=== PATIENT | female | born 1995 | race Hispanic/Latino ===

== ENCOUNTER 2018-09-10 14:52 | Emergency (ER) | payer OTHER ==
[~2018-09-10] VITALS: Ht 160 cm; Wt 100.6 kg
[2018-09-10] MEDS ORDERED: ACETAMINOPHEN 325 MG TAB PO ONE (16:30)
--- NOTE | 2018-09-10 17:33 | REP ---
Clinical: Irregular menstrual cycles . Technique: Transabdominal pelvic ultrasound followed by transvaginal examination for better evaluation of the endometrium and adnexa with color Doppler evaluation of the ovaries. Findings: Bladder is unremarkable and measures 6.5 x 3.6 x 3.2 cm . Normal anteverted uterus measures 7.6 x 3.0 x 4.4 cm . The endometrial complex measures 4.9 mm thickness. No discrete uterine or endometrial abnormalities are appreciated. Incidental Nabothian cysts noted. Right ovary is normal in appearance and vascularity without torsion. Right ovary measures 3.3 x 1.7 x 2.8 cm ; R I = 0.73 . Left ovary measures 6.3 x 4.3 x 5.3 cm with 5.7 cm dermoid containing fat and here/soft tissue components. No free fluid. . Impression: 1. Normal uterus and right ovary. 2. Left ovary/adnexa with 5.7 cm dermoid cyst/teratoma. Electronically Signed by Max Burnham MD 09/10/2018 05:24 P
[2018-09-10 18:07] VITALS: BP 122/76
== END 2018-09-10 18:07 | disposition home or self-care (01) ==
LOC: M ED 14:52
DX: N91.2 Amenorrhea, unspecified (principal); D27.9 Benign neoplasm of unspecified ovary

== ENCOUNTER 2019-06-02 05:51 | Day surgery (SDC) | payer OTHER ==
[~2019-06-02] VITALS: Ht 160 cm; Wt 93.6 kg
[~2019-06-02 05:51] MED LIST: birth control PO
[2019-06-02] MEDS ORDERED: LR 1,000 ML IV ONE (06:00)
[2019-06-02 06:38] LABS: HEMATOCRIT 40.7 % (36.0-47.0); HEMOGLOBIN 12.8 g/dl (12.0-15.5); MEAN CORPUSCULAR HEMOGLOBIN 26.1 pg (27.0-33.0); MEAN CORPUSCULAR HGB CONC 31.4 g/dl (32.0-36.5); MEAN CORPUSCULAR VOLUME 83.1 fl (80.0-96.0); PLATELET COUNT, AUTOMATED 342 10^3/uL (150-450); WHITE BLOOD COUNT 13.1 10^3/uL (4.0-10.0)
[2019-06-02] MEDS ORDERED: BUPIVACAINE HCL 0.5% 30 ML VIAL As Ordered ONE (06:57)
[2019-06-02] MEDS ORDERED: fentaNYL 100 MCG/2 ML INJECTION (J3010) As Ordered ONE (07:10)
[2019-06-02] MEDS ORDERED: SUGAMMADEX SODIUM 500 MG/5 ML VIAL (BRIDION) As Ordered ONE (07:10)
[2019-06-02] MEDS ORDERED: ACETAMINOPHEN 1000MG 100ML IV BTL (OFIRMEV) (J0131 PER 10MG) As Ordered ONE (07:10)
[2019-06-02] MEDS ORDERED: dexameTHASONE 4 MG/ML 1ML VIAL (J1100) As Ordered ONE (07:10)
[2019-06-02] MEDS ORDERED: ROCURONIUM BROMIDE 50 MG/5 ML VIAL As Ordered ONE (07:10)
[2019-06-02] MEDS ORDERED: ONDANSETRON 4MG/2ML VIAL (J2405) As Ordered ONE (07:10)
[2019-06-02] MEDS ORDERED: PROPOFOL 200 MG/20 ML VIAL As Ordered ONE (07:10)
[2019-06-02] MEDS ORDERED: LIDOCAINE 2% INJ 100 MG/5 ML SDV (FOR ANES.) As Ordered ONE (07:10)
[2019-06-02] MEDS ORDERED: KETOROLAC 60 MG/2 ML VIAL (J1885) As Ordered ONE (07:10)
[2019-06-02] MEDS ORDERED: MIDAZOLAM INJ 2 MG/2 ML VIAL (J2250) As Ordered ONE (07:11)
[2019-06-02 07:14] LABS: HCG, SERUM QUALITATIVE NEGATIVE (NEGATIVE)
[2019-06-02] MEDS ORDERED: GLYCOPYRROLATE INJ 0.2 MG/ML 2 ML VIAL As Ordered ONE (09:13)
[2019-06-02] MEDS ORDERED: NEOSTIGMINE 10 MG/10 ML VIAL (J2710) As Ordered ONE (09:13)
[2019-06-02] MEDS ORDERED: fentaNYL 100 MCG/2 ML INJECTION (J3010) IV PRN (09:45)
[2019-06-02] MEDS ORDERED: METOCLOPRAMIDE INJ 10MG/2ML VIAL (J2765) IV PRN (09:45)
[2019-06-02] MEDS ORDERED: oxyCODONE 5MG TAB PO PRN (09:45)
[2019-06-02] MEDS ORDERED: LR 1,000 ML IV SCH (09:45)
[2019-06-02] MEDS ORDERED: ONDANSETRON 4MG/2ML VIAL (J2405) IV PRN (09:45)
[2019-06-02] MEDS ORDERED: MEPERIDINE INJ 25 MG/ML VIAL (J2175) IV PRN (09:45)
[2019-06-02 11:52] VITALS: BP 120/69
[2019-06-02] MEDS ORDERED: PERCOCET 5MG/325MG TAB PO PRN (12:00)
[2019-06-02] MEDS ORDERED: KETOROLAC 30 MG/ML VIAL (J1885) IV PRN (15:00)
--- NOTE | 2019-06-06 11:00 | RO ---
DATE OF PROCEDURE: 06/02/2019 PREOPERATIVE DIAGNOSIS: Left ovarian mature teratoma or dermoid cyst. POSTOPERATIVE DIAGNOSIS: Left ovarian mature teratoma or dermoid cyst. PROCEDURE: Laparoscopic ovarian cystectomy. SURGEON: Isaiah Flynn DO MONOMER PURIFICATION OPERATOR: Sawyer Eddy DO ANESTHESIA: General. FLUIDS: 1100 mL of Lactated Ringer's. URINE OUTPUT: 200 mL via Pacheco catheter. ESTIMATED BLOOD LOSS: 5 mL. COMPLICATIONS: None. ANTIBIOTICS: None indicated. OPERATIVE FINDINGS: Normal uterus, right ovary and right fallopian tube. Normal left fallopian tube. Large, approximately 6 cm, dermoid cyst seen on the left ovary, otherwise normal pelvis. DETAILED PROCEDURE DESCRIPTION: The risks, benefits, indications and alternatives of the procedure were reviewed with the patient and informed consent was obtained. The patient was taken to the operating room where general anesthesia was obtained without difficulty. The patient was then placed in the lithotomy position using gel padded Luther stirrups. The patient was then prepped and draped in the usual sterile fashion. A surgical time out was then performed and the patient's identity and planned procedure were verified with the operative team. A Pacheco catheter was placed first. A sterile speculum was then inserted into the vagina and the cervix was visualized. An acorn uterine manipulator was then placed into the uterus as a means to manipulate the uterus. The sterile speculum was then removed. Gloves were then exchanged and attention was then turned to the patient's abdomen where a 5 mm skin incision was then made in the inferior aspect of the umbilicus. A 5 mm trocar and sleeve were then carefully introduced into the peritoneal cavity under direct visualization at a 90 degree angle while tenting up the abdominal wall. Intraperitoneal placement was confirmed under direct visualization and entry pressure was noted to be less than 5 mmHg. A pneumoperitoneum was then obtained with several liters of CO2 gas. Upon entering the peritoneal cavity, structures immediately below the incision were inspected and found to be free of injury. At this time, two additional trocars were inserted into the abdomen to include a 5 mm port in the right lower quadrant and an 11 mm port in the left lower quadrant. These ports were placed under direct visualization after skin incisions were made with a scalpel. A survey of the patient's abdomen and pelvis was notable for a large, approximately 6 cm, dermoid cyst on the left ovary. The fallopian tubes bilaterally were normal in appearance. The right ovary was normal in appearance. The uterus was normal in appearance. Using monopolar Endo Arvin the left ovarian cyst was dissected away from the ovarian stroma. Rupture of the cyst occurred during dissection and fatty liquid and tissue was observed coming from the cyst. The left ovarian cyst was then removed from the ovary via careful dissection with laparoscopic instruments. The entire cyst wall and content was then removed from the ovary through meticulous dissection. An Endo Catch bag was then introduced into the abdomen and the ovarian cyst wall and content including fat and hair tissue was then placed into the Endo Catch bag and removed from the abdomen. Examination of the pelvis revealed excellent hemostasis at the left ovary operative site. After removal of the cyst, the ovary appeared normal. The pelvis was then copiously irrigated with approximately 2 liters of fluid to remove all cyst wall content from the abdomen. After copious irrigation, inspection revealed no further cyst wall content in the pelvis. Inspection of the left ovary again revealed hemostasis at the ovarian stroma and no bleeding whatsoever. After irrigation, the abdomen was again inspected and everything was hemostatic. The left lower quadrant port was then removed under direct visualization. A Arnoldo-Haylie device was then used to close the fascial layer of the left lower quadrant port using #0 Vicryl suture. The gas was then turned off and all CO2 was removed from the patient's abdomen. The remaining ports were then removed under direct visualization. There was no bleeding seen from the trocar sites. The patient was given three manual breaths to assist with desufflation of the abdomen. The skin incisions were then closed with #4-0 Vicryl suture in a subcuticular fashion and then covered with DERMABOND. The uterine manipulator was then removed and excellent hemostasis was noted at the cervix. The patient's Pacheco catheter was then removed. All instruments were then confirmed to have been removed from the patient's vagina. At the completion of the case, the sponge, instrument and needle counts were correct times two. The patient tolerated the procedure well and was taken to the postanesthesia care unit (PACU) in stable condition. CALDERON
== END 2019-06-02 11:53 | disposition home or self-care (01) ==
LOC: M SDC 05:51
PROVIDERS: ATTEND Obstetrics & Gynecology
DX: D39.12 Neoplasm of uncertain behavior of left ovary (principal); Z79.3 Long term (current) use of hormonal contraceptives
CPT/HCPCS: 36415; 58662; 84703; 85027; 86850; 86900; 86901; 88305; J0131; J1100; J1885; J2250; J2405; J2710; J2765; J3010

== ENCOUNTER 2020-10-30 16:30 | Emergency (ER) | payer OTHER ==
[~2020-10-30] VITALS: Ht 157.5 cm; Wt 97.8 kg
[2020-10-30] MEDS ORDERED: NS 1,000 ML IV ONE (17:15)
--- NOTE | 2020-10-30 17:57 | REP ---
INDICATION: pelvic cramping: ?14 weeks . COMPARISON: None. TECHNIQUE: Transabdominal obstetric sonography. FINDINGS: Scanning through the gravid uterus demonstrates a single living intrauterine gestation in a transverse lie. The placenta is anterior grade 0 without evidence of previa. No abruption seen. Amniotic fluid is subjectively normal. heart rate is recorded at 156 beats per minute. Closed cervical length is 3.0 cm measured transabdominally. Biometry chart: BPD 2.9 cm, 15 weeks 2 days Abdominal circumference 8.6 cm, 15 weeks 0 days Humeral length 1.7 cm, 15 weeks 0 days Head circumference 10.7 cm, 15 weeks 1 day Femur length 1.7 cm, 15 weeks 0 days IMPRESSION: Viable single intrauterine gestation at 15 weeks 1 days by today's composite sonographic criteria. KRISTEL by today's sonography April 22, 2021. No complication identified. <Electronically signed by Mau Mallory > 10/30/20 [id number]
[2020-10-30 19:45] VITALS: BP 135/81
[2020-10-30] MEDS ORDERED: CEPH500C PO (19:51)
== END 2020-10-30 20:02 | disposition home or self-care (01) ==
LOC: M ED 16:30
DX: O99.891 Other specified diseases and conditions complicating pregnancy (principal); R10.2 Pelvic and perineal pain; Z3A.15 15 weeks gestation of pregnancy; Z87.42 Personal history of other diseases of the female genital tract; Z98.890 Other specified postprocedural states

== ENCOUNTER → 2021-01-09 | Outpatient (CLI) | payer OTHER ==
[~2021-01-09] VITALS: Ht 157.5 cm; Wt 105.6 kg
[~2021-01-09] MED LIST changes: +CEPH500C PO
--- NOTE | 2021-01-09 17:23 | IPNPDOC ---
Subjective Date Seen The patient was seen on 01/09/21. Subjective Chief Complaint/HPI 25yo at 25w0d with KRISTEL 10 Nov presents to triage with dizziness. States she feels like she 'overdid it' at work today. 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 States that she feels a little lightheaded/dizzy when standing and symptoms resolve with rest. She also states she did not eat today. In additions, she reports an episode of light pink spotting when wiping while in the bathroom. She is otherwise without complaint. Denies ctx, LOF, bright red bleeding or discharge. +GFM. General: Reports: Fatigue, Normal Appetite; Denies: Chills, Night Sweats, Malaise Constitutional: Reports: Other (dizziness); Denies: Chills, Fever, Night Sweats Eyes: Denies: Pain, Vision change Pulmonary: Denies: Dyspnea, Cough Cardiovascular: Denies: Chest Pain, Palpitations, Orthopnea, Paroxysmal Noc. Dyspnea, Lt Headedness Neurological: Denies: Weakness, Numbness, Change in speech, Confusion Psych: Reports: Mood Normal; Denies: Depression, Memory Issues Objective Physical Examination General Exam: Positive: Alert, No Acute Distress Chest Exam: Positive: Normal air movement Heart Exam: Positive: Rate Normal Female Exam: Positive: Nl Ext Genitalia, Normal Cervical Exam (visually closed. No blood or discharge on exam); Negative: Lesions, Discharge, Odor, Tenderness Psych Exam: Positive: Mental status NL, Mood NL, Oriented x 3 Other physical findings Cat 1 FHT. No contractions on tocometer Assessment /Plan Assessment 25yo at 25w0d with dizziness. Symptoms much improved since arrival. Has been able to PO hydrate and would like to order food. Vaginal exam benign, cervix visually closed, no evidence of bleeding or abnormal discharge. Pt has follow up scheduled in mid Jan for [facility] and for 28wk LUZ MARINA visit. Return precautions given. Plan/VTE VTE Prophylaxis Ordered?: No VTE Exclusion Mechanical Proph: Other (triage visit) VS, I&O, 24H, Fishbone Vital Signs/I&O Vital signs not yet recorded. At monitor, were wnl. BP normotensive, pulse 90's. Afebrile. GILMA CHANEY M.D. Jan 09, 2021 17:23
== END ==
LOC: M LDO 14:33
PROVIDERS: ATTEND Obstetrics & Gynecology
DX: O26.892 Other specified pregnancy related conditions, second trimester (principal); Z3A.25 25 weeks gestation of pregnancy; R42 Dizziness and giddiness; O26.852 Spotting complicating pregnancy, second trimester; O99.212 Obesity complicating pregnancy, second trimester; E66.9 Obesity, unspecified; Z79.899 Other long term (current) drug therapy
CPT/HCPCS: 59025; G0378; G0463

== ENCOUNTER → 2021-01-30 | Outpatient (CLI) | payer OTHER ==
--- NOTE | 2021-01-30 10:38 | REP ---
INDICATION: OBESITY COMPARISON: 10/30/2020 TECHNIQUE: Transabdominal obstetrical ultrasound with color Doppler evaluation. FINDINGS: Examination demonstrates a single live intrauterine in cephalic presentation. motion is identified by technologist. Placenta is noted anterior and grade 1 without evidence for placenta previa or abruption. Amniotic fluid volume is normal. Cervix measures 3.1 cm in length and appears closed.. Selected gestational age: 28 weeks 0 days with KRISTEL 04/24/2021. Gestational age by current measurements 28 weeks 4 days with KRISTEL 04/20/2021. FHR equals 136 beats per minute. Estimated weight 1303 grams (72ndpercentile). IVONE: 14.7 cm Umbilical artery SD ratio: 2.75, 2.62 (2.09-4.36) Anatomical assessment demonstrates normal structures including cranium, facial profile, four-chamber heart, kidneys/bladder, spine and three-vessel cord. IMPRESSION: 1. Single live intrauterine in cephalic presentation demonstrating appropriate estimated weight and biometric measurements. 2. Limited anatomical assessment without obvious abnormality. <Electronically signed by Max Burnham > 01/30/21 [id number]
== END ==
LOC: M RAD 09:41
PROVIDERS: ATTEND Registered Nurse Maternal Newborn
DX: E66.9 Obesity, unspecified (principal); Z3A.28 28 weeks gestation of pregnancy

== ENCOUNTER 2021-02-03 14:53 | Emergency (ER) | payer OTHER ==
[~2021-02-03] VITALS: Ht 157.5 cm; Wt 107.8 kg
[2021-02-03 15:29] LABS: BASO # 0.1 10^3/uL (0.0-0.2); BASO % 0.3 % (0.0-1.0); EOS # 0.1 10^3/uL (0.0-0.5); EOS % 0.7 % (0.0-3.0); HEMATOCRIT 32.4 % (36.0-47.0); HEMOGLOBIN 11.1 g/dl (12.0-15.5); LYMPH # 2.5 10^3/uL (1.5-5.0); LYMPH % 14.9 % (24.0-44.0); MEAN CORPUSCULAR HEMOGLOBIN 28.5 pg (27.0-33.0); MEAN CORPUSCULAR HGB CONC 34.3 g/dl (32.0-36.5); MEAN CORPUSCULAR VOLUME 83.3 fl (80.0-96.0); MONO # 0.8 10^3/uL (0.0-0.8); MONO % 4.8 % (2.0-8.0); NEUTROPHILS # 13.1 10^3/uL (1.5-8.5); NEUTROPHILS % 76.8 % (36.0-66.0); PLATELET COUNT, AUTOMATED 286 10^3/uL (150-450); RED BLOOD COUNT 3.89 10^6/uL (4.00-5.40)
[2021-02-03] MEDS ORDERED: NS 1,000 ML IV ONE (15:55)
--- NOTE | 2021-02-03 16:00 | REP ---
INDICATION: no movement felt COMPARISON: 01/30/2021 TECHNIQUE: Limited transabdominal obstetrical ultrasound with color Doppler evaluation. FINDINGS: Examination demonstrates a single live intrauterine in cephalic presentation. motion is identified by technologist. Placenta is noted anterior and grade 1 without evidence for placenta previa or abruption. Amniotic fluid volume is normal. Cervix measures 3.2 cm in length and appears closed.. Selected gestational age: 28 weeks 4 days with KRISTEL 04/24/2021. FHR equals 152 beats per minute. IVONE: 13.0 cm (9.3-23.0) Biophysical profile score: 8/8 Umbilical artery SD ratio: 2.98 (2.05-4.28) IMPRESSION: Single live intrauterine in cephalic presentation. Biophysical profile score and amniotic fluid volume are normal. <Electronically signed by Max Burnham > 02/03/21 0316
[2021-02-03 16:06] VITALS: BP 133/77
== END 2021-02-03 18:02 | disposition home or self-care (01) ==
LOC: M ED 14:53
DX: O36.8139 Decreased fetal movements, third trimester, other fetus (principal); Z3A.28 28 weeks gestation of pregnancy